=== PATIENT | male | born 1975 | race Caucasian/White ===

== ENCOUNTER 2023-05-16 15:35 | Emergency (ER) | payer OTHER ==
[~2023-05-16] VITALS: Ht 175.3 cm; Wt 77.1 kg
[2023-05-16 15:45] VITALS: BP 129/93
[2023-05-16] MEDS ORDERED: CYCL10 PO (16:24)
== END 2023-05-16 16:41 | disposition home or self-care (01) ==
LOC: ER 15:35
DX: S39.012A Strain of muscle, fascia and tendon of lower back, initial encounter (principal); X58.XXXA Exposure to other specified factors, initial encounter
CPT/HCPCS: 96372; 99282-25; J1885